=== PATIENT | female | born 1965 | race Caucasian/White ===

== ENCOUNTER 2017-08-12 06:54 | Day surgery (SDC) | payer OTHER ==
[~2017-08-12 06:54] MED LIST: [UNRECOGNIZED DRUG - OTHER] TP
== END 2017-08-12 11:00 | disposition home or self-care (01) ==
LOC: AMB-ENDOS 06:54
DX: K29.50 Unspecified chronic gastritis without bleeding (principal); K21.9 Gastro-esophageal reflux disease without esophagitis; K44.9 Diaphragmatic hernia without obstruction or gangrene; K29.80 Duodenitis without bleeding

== ENCOUNTER 2018-04-14 10:53 | Day surgery (SDC) | payer OTHER | END 2018-04-14 16:50 | disposition home or self-care (01) | LOC: AMB-ENDOS 10:53 | DX: D13.1 Benign neoplasm of stomach (principal) ==